=== PATIENT | male | born 1935 | race Caucasian/White ===

== ENCOUNTER 2023-06-09 01:32 | Inpatient (IN) | payer MEDICARE, OTHER ==
[~2023-06-09] VITALS: Ht 180.3 cm; Wt 59.9 kg
[2023-06-09] MEDS ORDERED: CLOP75TA15 PO (01:44)
[2023-06-09] MEDS ORDERED: METO25TA6 PO (01:44)
[2023-06-09] MEDS ORDERED: DILT60CA3 PO (01:44)
[2023-06-09] MEDS ORDERED: FINA5TAB11 PO (01:44)
[2023-06-09] MEDS ORDERED: PHEN100C4 PO (01:44)
[2023-06-09] MEDS ORDERED: DONE10TA11 PO (01:44)
[2023-06-09] MEDS ORDERED: DIGO125T PO (01:44)
[2023-06-09] MEDS ORDERED: PANT40TA49 PO (01:44)
[2023-06-09 02:00] LABS: *BILIRUBIN,URIN NEGATIVE (NEGATIVE); *CLARITY,URINE CLEAR (CLEAR); *COLOR,URINE YELLOW (YELLOW); *KETONES,URINE NEGATIVE (NEGATIVE); *UROBILINOGEN,URINE 0.2 E.U./dl (NORMAL); LEUKOCYTE ESTERASE ,URINE NEGATIVE (NEGATIVE); NITRITE, URINE NEGATIVE (NEGATIVE); PH,URINE 5.5 (5.0-8.0); UGLUCOSE NEGATIVE (NEGATIVE)
[2023-06-09 02:03] LABS: *BLOOD, URINE NEGATIVE (NEGATIVE); *PROTEIN,URINE NEGATIVE (NEGATIVE)
[2023-06-09 02:15] LABS: *AMPHETAMINE, URINE NEGATIVE (NEGATIVE); *BARBITURATE, URINE NEGATIVE (NEGATIVE); *BENZODIAZEPINE, URINE NEGATIVE (NEGATIVE); *CANNABINOID, URINE NEGATIVE (NEGATIVE); *COCCAINE, URINE NEGATIVE (NEGATIVE); *OPIATE, URINE NEGATIVE (NEGATIVE); *PHENCYCLIDINE SCREEN,URINE NEGATIVE (NEGATIVE)
[2023-06-09 02:31] LABS: FENTANYL, URINE NEGATIVE (NEGATIVE)
[2023-06-09 03:00] VITALS: BP 133/84; TEMP 97.9; O2SAT 96
[2023-06-09] MEDS ORDERED: MAGNESIUM HYDROXIDE 30 ML LIQUID UDC PO PRN (03:00)
[2023-06-09] MEDS ORDERED: ACETAMINOPHEN 325 MG TABLET PO PRN (03:00)
[2023-06-09] MEDS ORDERED: MAG HYDROX/AL HYDROX/SIMETH 30 ML LIQUID UDC PO PRN (03:00)
[2023-06-09] MEDS: BLOOD SUGAR DIAGNOSTIC 1 EACH STRIP VI ONE (03:36)
[2023-06-09 07:42] VITALS: BP 133/88; TEMP 97.8; O2SAT 100
[2023-06-09] MEDS: METOPROLOL TARTRATE 25 MG TABLET PO SCH (08:42)
[2023-06-09] MEDS: FINASTERIDE 5 MG TABLET PO SCH (08:42)
[2023-06-09] MEDS: PANTOPRAZOLE SODIUM 40 MG TABLET.DR PO SCH (08:42)
[2023-06-09] MEDS: DONEPEZIL 10 MG TABLET PO SCH (08:42)
[2023-06-09] MEDS: CLOPIDOGREL 75 MG TABLET PO SCH (08:43)
[2023-06-09] MEDS ORDERED: PHENYTOIN SODIUM EXTENDED 100 MG CAPSULE.SA PO SCH (09:00)
[2023-06-09] MEDS ORDERED: DIGOXIN 125 MCG TABLET PO SCH ×2 (09:00)
[2023-06-09] MEDS: DILTIAZEM HCL SR 60 MG CAP.SR.12H PO SCH (09:45)
[2023-06-09] MEDS ORDERED: MEGE20TA4 PO (09:54)
[2023-06-09] MEDS ORDERED: DILT-2 PO (10:26)
[2023-06-09] MEDS ORDERED: DIGO125T5 PO (10:33)
[2023-06-09] MEDS: DIGOXIN 125 MCG TABLET PO SCH (11:15)
[2023-06-09 15:04] VITALS: BP 105/68; TEMP 98; O2SAT 99
[2023-06-09] MEDS: DILTIAZEM HCL CD 120 MG CAP.SR.24H PO SCH (17:16)
[2023-06-09] MEDS: MEGESTROL ACETATE 20 MG TABLET PO SCH (17:17)
[2023-06-09] MEDS: ESCITALOPRAM OXALATE 10 MG TABLET PO SCH ×2 (17:38→18:25)
[2023-06-09 20:00] VITALS: BP 126/79; TEMP 98.6; O2SAT 97
[2023-06-10 07:17] LABS: BASOPHILS # (AUTO) 0.2 K/UL (0.0-0.2); BASOPHILS % (AUTO) 1.7 % (0.0-2.0); DIFFERENTIAL COMMENT 1; EOSINOPHILS # (AUTO) 0.6 K/uL (0.0-0.7); HEMATOCRIT 33.9 % (36.7-47.1); HEMOGLOBIN 11.8 g/dL (12.5-16.3); LYMPHOCYTES # (AUTO) 0.6 K/uL (0.8-4.8); LYMPHOCYTES % (AUTO) 5.2 % (20.5-51.5); MEAN CORPUSCULAR HEMOGLOBIN 30.6 uug (23.8-33.4); MEAN CORPUSCULAR HGB CONC 35 g/dL (32.5-36.3); MEAN CORPUSCULAR VOLUME 87.7 fL (73.0-96.2); MONOCYTES # (AUTO) 0.5 K/uL (0.1-1.30); NEUTROPHILS # (AUTO) 9.7 K/uL (1.8-8.9); NEUTROPHILS % (AUTO) 84.1 % (38.5-71.5); PLATELET COUNT (AUTO) 346 K/uL (152-348); RED BLOOD CELL COUNT(AUTO) 3.87 MIL/uL (4.06-5.63); RED CELL DISTRIBUTION WIDTH 13.5 % (12.1-16.2); WHITE BLOOD COUNT (AUTO) 11.6 K/uL (3.6-10.2)
[2023-06-10 07:39] LABS: CALCIUM 9.4 mg/dL (8.5-10.1); CARBON DIOXIDE 19 mmol/L (21-32); CHLORIDE 107 mmol/L (98-107); GLUCOSE 101 mg/dL (74-106); MAGNESIUM 2.2 mg/dL (1.8-2.4); PHOSPHOROUS 3.5 mg/dL (2.5-4.9); POTASSIUM 4.3 mmol/L (3.5-5.1); SODIUM SERUM 138 mmol/L (136-145); UREA NITROGEN, BLOOD 40 mg/dL (7-18)
[2023-06-10 08:01] VITALS: BP 109/65; TEMP 97.8; O2SAT 98
[2023-06-10] MEDS: PHENYTOIN 100 MG/4 ML UDC PO SCH (15:00)
[2023-06-10] MEDS: ENSURE ENLIVE (VAN) 240 ML LIQUID PO SCH (15:02)
[2023-06-10 15:35] VITALS: BP 111/71; TEMP 98; O2SAT 98
[2023-06-10 19:45] VITALS: BP 136/83; TEMP 98; O2SAT 98
[2023-06-10] MEDS: CLONAZEPAM 0.5 MG TABLET PO PRN (20:24)
[2023-06-11 07:55] LABS: BASOPHILS # (AUTO) 0.1 K/UL (0.0-0.2); BASOPHILS % (AUTO) 0.8 % (0.0-2.0); EOSINOPHILS # (AUTO) 0.1 K/uL (0.0-0.7); EOSINOPHILS % (AUTO) 1.2 % (0.0-7.0); HEMATOCRIT 34.9 % (36.7-47.1); LYMPHOCYTES # (AUTO) 1.1 K/uL (0.8-4.8); LYMPHOCYTES % (AUTO) 9.8 % (20.5-51.5); MEAN CORPUSCULAR HEMOGLOBIN 30.3 uug (23.8-33.4); MEAN CORPUSCULAR HGB CONC 35 g/dL (32.5-36.3); MEAN CORPUSCULAR VOLUME 87.7 fL (73.0-96.2); MONOCYTES % (AUTO) 8.8 % (0.0-11.0); NEUTROPHILS # (AUTO) 9.3 K/uL (1.8-8.9); NEUTROPHILS % (AUTO) 79.4 % (38.5-71.5); PLATELET COUNT (AUTO) 348 K/uL (152-348); RED BLOOD CELL COUNT(AUTO) 3.98 MIL/uL (4.06-5.63); RED CELL DISTRIBUTION WIDTH 13.5 % (12.1-16.2); WHITE BLOOD COUNT (AUTO) 11.7 K/uL (3.6-10.2)
[2023-06-11 08:05] VITALS: BP 122/84; TEMP 98; O2SAT 98
[2023-06-11 08:10] LABS: ALANINE AMINOTRANSFERASE 28 U/L (16-63); ALBUMIN 2.9 g/dL (3.4-5.0); ALKALINE PHOSPHATASE 85 U/L (50-136); ASPARTATE AMINOTRANSFERASE 7 U/L (15-37); BILIRUBIN,TOTAL 0.3 mg/dL (0.2-1.0); CALCIUM 9.4 mg/dL (8.5-10.1); CARBON DIOXIDE 23 mmol/L (21-32); CHLORIDE 105 mmol/L (98-107); CREATINE KINASE, TOTAL 15 U/L (39-308); GLUCOSE 97 mg/dL (74-106); MAGNESIUM 2.2 mg/dL (1.8-2.4); PHOSPHOROUS 3.4 mg/dL (2.5-4.9); POTASSIUM 4.3 mmol/L (3.5-5.1); SODIUM SERUM 139 mmol/L (136-145); TOTAL PROTEIN, SERUM 6.8 g/dL (6.4-8.2); UREA NITROGEN, BLOOD 37 mg/dL (7-18)
[2023-06-11 08:25] LABS: DIFFERENTIAL COMMENT 1
[2023-06-11 16:10] VITALS: BP 104/68; TEMP 98; O2SAT 98
[2023-06-11] MEDS: PHENYTOIN PO SCH (16:53)
[2023-06-11] MEDS: DILTIAZEM HCL CD 240 MG CAP.SR.24H PO SCH (16:57)
[2023-06-11 19:34] VITALS: BP 117/71; TEMP 98.4; O2SAT 98
[2023-06-11] MEDS: TEMAZEPAM 7.5 MG CAPSULE PO PRN (21:18)
[2023-06-12 08:03] VITALS: BP 134/89; TEMP 98.1; O2SAT 98
[2023-06-12 11:43] LABS: *BILIRUBIN,URIN NEGATIVE (NEGATIVE); *BLOOD, URINE NEGATIVE (NEGATIVE); *CLARITY,URINE CLEAR (CLEAR); *COLOR,URINE YELLOW (YELLOW); *KETONES,URINE NEGATIVE (NEGATIVE); *PROTEIN,URINE 1+ (NEGATIVE); *UROBILINOGEN,URINE 0.2 E.U./dl (NORMAL); LEUKOCYTE ESTERASE ,URINE NEGATIVE (NEGATIVE); NITRITE, URINE NEGATIVE (NEGATIVE); PH,URINE 5.5 (5.0-8.0); UGLUCOSE NEGATIVE (NEGATIVE)
[2023-06-12 11:51] LABS: *URINE TOTAL PROTEIN RANDOM 54.1 mg/dL (<150/24HR)
[2023-06-12 12:12] LABS: BACTERIA,URINE RARE /HPF (NONE SEEN); RBC,URINE 0-3 /HPF (0-3); SQUAMOUS EPITHELIAL CELL,UR FEW /HPF (NONE SEEN)
[2023-06-12 16:13] VITALS: BP 130/76; TEMP 98; O2SAT 98
[2023-06-12 20:04] VITALS: BP 111/60; TEMP 98; O2SAT 98
[2023-06-13 07:25] LABS: CALCIUM 9.2 mg/dL (8.5-10.1); CARBON DIOXIDE 24 mmol/L (21-32); CHLORIDE 106 mmol/L (98-107); CREATININE 2.1 mg/dL (0.6-1.3); GLUCOSE 96 mg/dL (74-106); POTASSIUM 4.2 mmol/L (3.5-5.1); SODIUM SERUM 138 mmol/L (136-145); UREA NITROGEN, BLOOD 40 mg/dL (7-18)
[2023-06-13 07:44] VITALS: BP 144/76; TEMP 98.3; O2SAT 98
[2023-06-13 10:11] LABS: PTH, INTACT 35 pg/mL (15-65)
[2023-06-13 13:10] LABS: A/G RATIO 0.9 (0.7-1.7); ALBUMIN 2.9 g/dL (2.9-4.4); ALPHA-1-GLOBULIN 0.3 g/dL (0.0-0.4); BETA GLOBULIN 0.9 g/dL (0.7-1.3); GLOBULIN, TOTAL 3.2 g/dL (2.2-3.9); M-SPIKE Not Observed g/dL (Not Observed)
[2023-06-13 16:19] VITALS: BP 107/69; TEMP 98.1; O2SAT 98
[2023-06-13 19:54] VITALS: BP 118/66; TEMP 98.1; O2SAT 96
[2023-06-14 07:30] VITALS: BP 117/78; TEMP 98.2; O2SAT 98
[2023-06-14] MEDS: ESCITALOPRAM OXALATE 10 MG TABLET PO SCH (09:10)
[2023-06-14] MEDS: PATIENT MAY USE OWN MED- MD OK PO ONE (09:13)
[2023-06-14 15:09] VITALS: BP 90/56; TEMP 98.2; O2SAT 98
[2023-06-14] MEDS: PATIENT MAY USE OWN MED- MD OK PO SCH ×2 (16:48→17:00)
[2023-06-14 19:36] VITALS: BP 120/62; TEMP 98.1; O2SAT 96
[2023-06-15 07:39] VITALS: BP 127/82; TEMP 98.2; O2SAT 98
[2023-06-15 08:12] LABS: CALCIUM 9.3 mg/dL (8.5-10.1); CARBON DIOXIDE 22 mmol/L (21-32); CHLORIDE 105 mmol/L (98-107); DIGOXIN 0.7 ng/mL (0.9-2.0); GLUCOSE 111 mg/dL (74-106); POTASSIUM 4.4 mmol/L (3.5-5.1); SODIUM SERUM 139 mmol/L (136-145); UREA NITROGEN, BLOOD 39 mg/dL (7-18)
[2023-06-15 10:46] VITALS: BP 115/78; TEMP 98.2; O2SAT 98
== END 2023-06-15 13:30 | disposition home or self-care (01) | DRG 885 ==
LOC: ER 01:38 → GPS 02:00
PROVIDERS: ADMIT Psychiatry & Neurology Psychiatry; ATTEND Internal Medicine
DX: F33.2 Major depressive disorder, recurrent severe without psychotic features (principal); N18.9 Chronic kidney disease, unspecified; N17.9 Acute kidney failure, unspecified; R45.851 Suicidal ideations; Z68.1 Body mass index [BMI] 19.9 or less, adult; F02.83 Dementia in other diseases classified elsewhere, unspecified severity, with mood disturbance; G35 Multiple sclerosis; Z95.810 Presence of automatic (implantable) cardiac defibrillator; E78.5 Hyperlipidemia, unspecified; Z79.02 Long term (current) use of antithrombotics/antiplatelets; Z79.899 Other long term (current) drug therapy; D64.9 Anemia, unspecified; N40.0 Benign prostatic hyperplasia without lower urinary tract symptoms; I12.9 Hypertensive chronic kidney disease with stage 1 through stage 4 chronic kidney disease, or unspecified chronic kidney disease; I25.10 Atherosclerotic heart disease of native coronary artery without angina pectoris; I48.91 Unspecified atrial fibrillation; G30.9 Alzheimer's disease, unspecified
CPT/HCPCS: 36415; 76770; 83735; 83970; 84100; 84155; 84165; 84300; 85025; 93005